=== PATIENT | male | born 1945 | race Hispanic/Latino ===

== ENCOUNTER 2025-01-17 23:17 | Emergency (ER) | payer OTHER ==
[2025-01-17 23:48] LABS: ALT (SGPT) 32 U/L (Less than 45); AST (SGOT) 34 U/L (11-34); Albumin 2.3 g/dL (3.1-4.5); Alkaline Phosphatase 238 U/L (40-110); Anion Gap 14 mmol/L (10-20); BUN (Urea Nitrogen) 32 mg/dL (8.4-25.7); Bilirubin, Total 0.8 mg/dL (0.3-1.2); Calc. Creatinine Clearance 0 mL/min (70-130); Calcium 8.2 mg/dL (7.8-10.44); Carbon Dioxide 19 mmol/L (23-31); Chloride 111 mmol/L (98-107); Globulin 2.8 g/dL (2.4-3.5); Glucose 362 mg/dL (83-110); Lipase 38 U/L (8-78); Potassium 4.7 mmol/L (3.5-5.1); Sodium 139 mmol/L (136-145)
[2025-01-17 23:52] LABS: Platelet Count 85 10x3/uL (150-450)
[2025-01-17] MEDS ORDERED: Pantoprazole 40 MG VIAL ONE (23:52)
[2025-01-17 23:53] LABS: #Basophils 0.12 10x3/uL (0.0-0.2); #Eosinophils 0.61 10x3/uL (0.0-0.5); #Monocytes 0.53 10x3/uL (0.0-1.1); #Neutrophils 2.93 10x3/uL (1.5-8.4); %Basophils 2.1 % (0.0-2.0); %Eosinophils 10.6 % (0.0-6.0); %Lymphocytes 27.3 % (18.0-47.0); %Monocytes 9.2 % (0.0-10.0); %Neutrophils 50.6 % (40.0-75.0); Hematocrit 27.0 % (38.8-50.0); Hemoglobin 8.3 g/dL (13.5-17.5); Mean Corpuscular Hemoglobin 26.9 pg (27.0-33.0); Mean Corpuscular Volume 87.7 fL (81.2-95.1); Red Blood Cell (RBC) Count 3.08 10x6/uL (4.32-5.72); White Blood Cell (WBC) Count 5.78 10x3/uL (3.5-10.5)
[2025-01-18 00:18] LABS: Troponin I Less than 0.010 ng/mL (< 0.028)
[2025-01-18 00:23] LABS: INR-International Normal Ratio 1.1; PTT 28.3 sec (22.0-33.0); Prothrombin Time 11.9 sec (9.5-12.1)
[2025-01-18] MEDS ORDERED: Octreotide Acetate 1,250 MCG in Sodium Chloride 0.9% 250 ML 250 ML IVPB SCH ×2 (00:30)
[2025-01-18] MEDS ORDERED: cefTRIAXone (ROCEPHIN) 2 GM VIAL ONE (01:07)
[2025-01-18] MEDS ORDERED: Pantoprazole 40 MG VIAL ONE (01:54)
== END 2025-01-18 03:30 | disposition short-term general hospital (02) ==
LOC: CSHERS 23:17 → EEVIPCON 23:17 → CSHERS 01-18 03:30
DX: K92.2 Gastrointestinal hemorrhage, unspecified (principal); D62 Acute posthemorrhagic anemia; K74.60 Unspecified cirrhosis of liver; E11.65 Type 2 diabetes mellitus with hyperglycemia; I10 Essential (primary) hypertension; J44.9 Chronic obstructive pulmonary disease, unspecified; E03.9 Hypothyroidism, unspecified; Z79.890 Hormone replacement therapy; Z79.82 Long term (current) use of aspirin; Z79.899 Other long term (current) drug therapy; Z79.51 Long term (current) use of inhaled steroids; Z79.4 Long term (current) use of insulin
CPT/HCPCS: 36415; 36430; 80053; 83605; 83690; 83880; 84484; 85025; 85610; 85730; 86850; 86900; 86901; 93005; 96365; 96375; 96376; J0696; J2354; J2470; J7050; P9016